=== PATIENT | male | born 1960 | race Caucasian/White ===

== ENCOUNTER 2017-09-01 09:11 | Emergency (ER) | payer MEDICAID ==
[~2017-09-01] VITALS: Ht 180.3 cm; Wt 68.0 kg
[2017-09-01 14:09] VITALS: BP 110/73
[2017-09-01 15:09] LABS: CLARITY URINE CLOUDY (CLEAR); COLOR URINE DARK YELLOW (YELLOW); KETONES URINE TRACE (NEGATIVE); LEUKOCYTE ESTERASE URINE 2+ (NEGATIVE); NITRITE URINE POSITIVE (NEGATIVE); OCCULT BLOOD URINE 3+ (NEGATIVE); PH URINE 5.5 (4.5-8.0); PROTEIN URINE 2+ (NEGATIVE); SPECIFIC GRAVITY URINE 1.031 (1.005-1.030)
[2017-09-01] MEDS ORDERED: CEFTRIAXONE SODIUM 1 G/VIAL IM ONE (16:15)
[2017-09-01] MEDS ORDERED: PHENAZOPYRIDINE HCL 100MG TABLET PO ONE (16:15)
[2017-09-01] MEDS ORDERED: LIDOCAINE HCL 1% 20ML VIAL (Pyxis) INJ INFIL ONE (16:45)
== END 2017-09-01 16:45 | disposition left against medical advice (07) ==
LOC: ER 09:55
DX: T83.091A Other mechanical complication of indwelling urethral catheter, initial encounter (principal); Y84.8 Other medical procedures as the cause of abnormal reaction of the patient, or of later complication, without mention of misadventure at the time of the procedure; Y92.89 Other specified places as the place of occurrence of the external cause; N39.0 Urinary tract infection, site not specified; Z98.890 Other specified postprocedural states
CPT/HCPCS: 51702; 81001; 87077; 87086; 87186; 96372; 99284; J0696; J3490; A4315

== ENCOUNTER 2018-05-15 17:09 | Emergency (ER) | payer SELFPAY ==
[~2018-05-15] VITALS: Ht 175.3 cm; Wt 84.0 kg
[2018-05-15] MEDS ORDERED: ONDANSETRON HCL 4MG/2ML INJ IV STA (18:50)
[2018-05-15] MEDS ORDERED: MORPHINE SULFATE 4 MG/ML CPJ (NOT FOR IM USE) IV STA (18:50)
[2018-05-15] MEDS ORDERED: TETANUS, DIPHTHERIA, PERTUSSIS VAC/PF 0.5ML (>7YR OLD) IM ONE (19:00)
[2018-05-15 19:21] LABS: BASOPHILS % 0.3 % (0.0-2.0); EOSINOPHILS % 2.6 % (0.0-5.0); HEMATOCRIT. 44.9 % (42.0-52.0); HEMOGLOBIN. 15.5 g/dL (14.0-18.0); LYMPHOCYTES % 28.9 % (20.0-50.0); MEAN CORPUSCULAR HEMOGLOBIN 31.8 pg (28.0-32.0); MEAN CORPUSCULAR VOLUME 92.3 fL (80.0-94.0); MEAN PLATELET VOLUME 7.6 fl (7.4-10.4); MONOCYTES % 13.3 % (2.0-8.0); NEUTROPHILS % 54.9 % (40.0-76.0); PLATELET 239 x1000/uL (130-400); RED BLOOD CELL COUNT 4.87 mill/uL (4.7-6.1); RED CELL DISTRIBUTION WIDTH 14.2 % (11.6-14.6)
[2018-05-15 19:29] LABS: CHLORIDE 102 mEq/L (98-107)
[2018-05-15] MEDS ORDERED: HYDROCODONE/ACETAMINOPHEN 5/325MG TABLET PO ONE (21:30)
[2018-05-15 21:44] VITALS: BP 111/69
== END 2018-05-15 21:45 | disposition home or self-care (01) ==
LOC: ER 17:09
DX: S00.31XA Abrasion of nose, initial encounter (principal); S06.0X1A Concussion with loss of consciousness of 30 minutes or less, initial encounter; S00.81XA Abrasion of other part of head, initial encounter; H54.40 Blindness, one eye, unspecified eye; H33.23 Serous retinal detachment, bilateral; Z98.890 Other specified postprocedural states; V29.88XA Motorcycle rider (driver) (passenger) injured in other specified transport accidents, initial encounter; Y93.89 Activity, other specified; Y92.89 Other specified places as the place of occurrence of the external cause; Y99.8 Other external cause status
CPT/HCPCS: 36415; 70450; 70486; 71250; 74176; 80053; 83690; 85025; 90471; 90715; 96374; 96375; 99285; J2270; J2405; Z7610